=== PATIENT | male | born 1990 | race Caucasian/White ===

== ENCOUNTER 2019-06-10 21:09 | Emergency (ER) | payer OTHER | END 2019-06-10 22:11 | disposition left against medical advice (07) | LOC: ER 21:09 | DX: J45.909 Unspecified asthma, uncomplicated (principal); Z53.21 Procedure and treatment not carried out due to patient leaving prior to being seen by health care provider ==

== ENCOUNTER 2019-06-11 21:13 | Emergency (ER) | payer OTHER ==
[~2019-06-11] VITALS: Ht 172.7 cm; Wt 75.0 kg
[2019-06-12] MEDS ORDERED: ALBUTEROL (0.083%) 2.5MG/3ML NEB HHN STA (01:12)
[2019-06-12] MEDS ORDERED: IPRATROPIUM BROMIDE (0.02%) 0.5MG/2.5ML NEB HHN STA (01:12)
[2019-06-12] MEDS ORDERED: PREDNISONE 20MG TABLET PO STA (01:12)
[2019-06-12 02:56] VITALS: BP 131/85
== END 2019-06-12 02:57 | disposition home or self-care (01) ==
LOC: ER 21:13
DX: J45.901 Unspecified asthma with (acute) exacerbation (principal)
CPT/HCPCS: 93005; 94640; 99283; J7512; J7611